=== PATIENT | male | born 1955 ===

== ENCOUNTER 2020-08-30 14:01 | Inpatient (IN) | payer OTHER, SELFPAY ==
[2020-08-30] MEDS ORDERED: Lorazepam 2 MG/ML VIAL ONE ×2 (14:16→16:44)
[2020-08-30] MEDS ORDERED: Ondansetron PF 4 MG/2 ML Vial ONE (14:23)
[2020-08-30] MEDS ORDERED: Multivitamins, Adult 10 ML, Thiamine HCl 100 MG, Folic Acid 1 MG in Dextrose 5 %-0.45 %... IV SCH (14:30)
[2020-08-30 15:10] LABS: Acetaminophen Less than 6.0 mcg/mL (10.0-30.0); Alcohol Less than 10 mg/dL (Less than 10); Salicylate Less than 8.0 mg/dL (15.0-30.0)
[2020-08-30 15:11] LABS: ALT (SGPT) 69 U/L (8-55); Albumin 4.1 g/dL (3.4-4.8); Alkaline Phosphatase 129 U/L (40-110); Anion Gap 26 mmol/L (10-20); BUN (Urea Nitrogen) 4 mg/dL (8.4-25.7); Bilirubin, Total 1.4 mg/dL (0.2-1.2); Calc. Creatinine Clearance 0 mL/min (70-130); Calcium 7.9 mg/dL (7.8-10.44); Carbon Dioxide 21 mmol/L (23-31); Chloride 95 mmol/L (98-107); Globulin 2.9 g/dL (2.4-3.5); Glucose 250 mg/dL (80-115); Lipase 16 U/L (8-78); Potassium 3.5 mmol/L (3.5-5.1); Sodium 138 mmol/L (136-145)
[2020-08-30 15:17] LABS: AST (SGOT) 155 U/L (5-34); Magnesium 1.1 mg/dL (1.6-2.6)
[2020-08-30 15:42] LABS: #Monocytes 0.3 10x3/uL (0.0-1.1); #Neutrophils 3.5 10x3/uL (1.5-8.4); %Basophils 0.5 % (0.0-2.0); %Lymphocytes 4.5 % (18.0-47.0); %Monocytes 7.9 % (0.0-10.0); %Neutrophils 84.5 % (40.0-75.0); Hemoglobin 10.6 g/dL (13.5-17.5); Mean Corpuscular HGB CONC 34.3 g/dL (32.0-36.0); Mean Corpuscular Hemoglobin 33.8 pg (27.0-33.0); Mean Corpuscular Volume 98.4 fl (81.2-95.1); Mean Platelet Volume 11.1 fl (7.4-10.4); Platelet Count 69 10x3/uL (150-450); RBC Distribution Width 15.8 % (11.5-14.5); Red Blood Cell (RBC) Count 3.14 10x6/uL (4.32-5.72); White Blood Cell (WBC) Count 4.2 10x3/uL (3.5-10.5)
[2020-08-30] MEDS ORDERED: Magnesium 2 GM/50 ML BAG (IN WATER) ONE (15:49)
[2020-08-30 16:09] LABS: Platelet Morphology Comment Appears Decreased; RBC Morphology Normal
[2020-08-30 16:18] LABS: Bilirubin Neg (Negative); Blood, Urine Negative (Negative); Clarity Clear (Clear); Glucose, Urine (Dipstick) 250 mg/dL (Negative); Ketone, Urine 5 mg/dL (Negative); Leukocyte 25 (Negative); Nitrite Negative (Negative); Protein, Urine (Dipstick) 15 mg/dl (Neg-Trace); Urobilinogen Normal mg/dL (Less than 2)
[2020-08-30 16:25] LABS: Amphetamine Not Detected (NotDetected); Barbiturates Screen Not Detected (NotDetected); Benzodiazepine Screen Not Detected (NotDetected); Cocaine Metabolite Screen Not Detected (NotDetected); Methadone Not Detected (NotDetected); Methamphetamine Not Detected (NotDetected); Opiate Screen Not Detected (NotDetected); Oxycodone Screen Not Detected (NotDetected); Phencyclidine (PCP) Not Detected (NotDetected); THC/Cannabinoid Screen Not Detected (NotDetected); Tricyclic Screen Not Detected (NotDetected)
[2020-08-30 16:33] LABS: Bacteria/HPF Rare-Few HPF (None Seen); RBC/HPF 0-3 HPF (0-3); Squamous Epithelial 0-3 HPF (0-3); WBC/HPF 0-3 HPF (0-3)
[2020-08-30 17:06] LABS: SARS-CoV-2 NAA Rapid Test Not Detected (NotDetected)
[2020-08-30] MEDS ORDERED: Ondansetron PF 4 MG/2 ML Vial IVP PRN (17:44)
[2020-08-30] MEDS ORDERED: Acetaminophen 325 MG TAB PO PRN (17:44)
[2020-08-30] MEDS ORDERED: HYDROcodone/Acetaminophen 5/325 mg Tablet PO PRN (17:44)
[2020-08-30 18:28] VITALS: BMI 22.1
[2020-08-30] MEDS ORDERED: Dextrose 5% in Water 1,000 ML IV PRN (18:39)
[2020-08-30] MEDS ORDERED: Dextrose 50% Abboject 50 ML SYRINGE SLOW IVP PRN (18:39)
[2020-08-30] MEDS ORDERED: Morphine 2 MG/ML VIAL SLOW IVP PRN (19:52)
[2020-08-30 20:25] LABS: Lactic Acid 1.9 mmol/L (0.5-2.2)
[2020-08-30] MEDS: Lorazepam 1 MG TAB PO SCH (20:54)
[2020-08-30] MEDS: Magnesium Oxide 400 MG TAB PO SCH (20:54)
[2020-08-30] MEDS: cloNIDine 0.1 MG TAB PO SCH (20:54)
[2020-08-31] MEDS: Lorazepam 2 MG/ML VIAL SLOW IVP PRN ×5 (00:23→17:21)
[2020-08-31 04:14] LABS: Lactic Acid 1.3 mmol/L (0.5-2.2)
[2020-08-31 04:20] LABS: ALT (SGPT) 57 U/L (8-55); AST (SGOT) 108 U/L (5-34); Albumin 3.9 g/dL (3.4-4.8); Alkaline Phosphatase 107 U/L (40-110); Anion Gap 13 mmol/L (10-20); BUN (Urea Nitrogen) 4 mg/dL (8.4-25.7); Bilirubin, Total 1.4 mg/dL (0.2-1.2); Calc. Creatinine Clearance 125 mL/min (70-130); Calcium 7.7 mg/dL (7.8-10.44); Carbon Dioxide 34 mmol/L (23-31); Chloride 93 mmol/L (98-107); Globulin 2.5 g/dL (2.4-3.5); Glucose 110 mg/dL (80-115); Magnesium 1.2 mg/dL (1.6-2.6); Protein, Total 6.4 g/dL (5.8-8.1); Sodium 137 mmol/L (136-145)
[2020-08-31 04:21] LABS: Potassium 2.7 mmol/L (3.5-5.1)
[2020-08-31] MEDS ORDERED: Potassium Chloride 20 MEQ TAB PO SCH (04:45)
[2020-08-31 05:07] LABS: #Monocytes 0.5 10x3/uL (0.0-1.1); #Neutrophils 2.8 10x3/uL (1.5-8.4); %Basophils 0.2 % (0.0-2.0); %Eosinophils 0.2 % (0.0-6.0); %Lymphocytes 23.3 % (18.0-47.0); %Monocytes 11.7 % (0.0-10.0); %Neutrophils 63.7 % (40.0-75.0); Hemoglobin 10.6 g/dL (13.5-17.5); Mean Corpuscular HGB CONC 34.3 g/dL (32.0-36.0); Mean Corpuscular Hemoglobin 34.1 pg (27.0-33.0); Mean Corpuscular Volume 99.4 fl (81.2-95.1); Platelet Count 70 10x3/uL (150-450); RBC Distribution Width 15.8 % (11.5-14.5); Red Blood Cell (RBC) Count 3.11 10x6/uL (4.32-5.72); White Blood Cell (WBC) Count 4.5 10x3/uL (3.5-10.5)
[2020-08-31] MEDS: Magnesium Oxide 400 MG TAB PO SCH (08:19)
[2020-08-31] MEDS: cloNIDine 0.1 MG TAB PO SCH ×3 (08:19→20:17)
[2020-08-31] MEDS: Lorazepam 1 MG TAB PO SCH (08:20)
[2020-08-31] MEDS ORDERED: Thiamine 100 MG TAB PO SCH (09:00)
[2020-08-31] MEDS ORDERED: Magnesium Sulfate 4 GM in Sodium Chloride 0.9% 250 ML 250 ML IVPB SCH (09:00)
[2020-08-31] MEDS ORDERED: Multivitamin W/ Minerals 1 TAB PO SCH (09:00)
[2020-08-31] MEDS ORDERED: Folic Acid 1 MG TAB PO SCH (09:00)
[2020-08-31] MEDS ORDERED: Potassium Chloride 40 MEQ in Premix Bag 1 BAG IVPB SCH (09:30)
[2020-08-31] MEDS: chlordiazePOXIDE HCl 5 MG CAP PO SCH ×3 (10:15→20:17)
[2020-08-31] MEDS: Magnesium 2 GM/50 ML 2 GM in Premix Bag 1 BAG IVPB SCH ×2 (10:15→10:17)
[2020-08-31 11:33] LABS: Hemoglobin A1c 4.6 % (4.0-6.0)
[2020-08-31] MEDS ORDERED: Multivitamins, Adult 10 ML, Folic Acid 1 MG, Thiamine HCl 100 MG in Dextrose 5 %-0.45 %... IV SCH (12:00)
[2020-08-31] MEDS: HumaLOG 300 UNITS/3 ML VIAL SC PRN (21:13)
[2020-09-01] MEDS: Lorazepam 2 MG/ML VIAL SLOW IVP PRN ×7 (00:50→23:14)
[2020-09-01 05:14] LABS: ALT (SGPT) 51 U/L (8-55); AST (SGOT) 88 U/L (5-34); Albumin 3.8 g/dL (3.4-4.8); Alkaline Phosphatase 97 U/L (40-110); Anion Gap 13 mmol/L (10-20); BUN (Urea Nitrogen) 5 mg/dL (8.4-25.7); Bilirubin, Total 1.6 mg/dL (0.2-1.2); Calc. Creatinine Clearance 125 mL/min (70-130); Calcium 8.2 mg/dL (7.8-10.44); Carbon Dioxide 29 mmol/L (23-31); Chloride 94 mmol/L (98-107); Globulin 2.6 g/dL (2.4-3.5); Glucose 104 mg/dL (80-115); Protein, Total 6.4 g/dL (5.8-8.1); Sodium 133 mmol/L (136-145)
[2020-09-01 05:26] LABS: Potassium 2.8 mmol/L (3.5-5.1)
[2020-09-01 05:38] LABS: #Monocytes 0.5 10x3/uL (0.0-1.1); #Neutrophils 3.7 10x3/uL (1.5-8.4); %Basophils 0.2 % (0.0-2.0); %Eosinophils 0.2 % (0.0-6.0); %Lymphocytes 15.7 % (18.0-47.0); %Neutrophils 72.7 % (40.0-75.0); Hemoglobin 10.7 g/dL (13.5-17.5); Mean Corpuscular HGB CONC 34.5 g/dL (32.0-36.0); Mean Corpuscular Hemoglobin 34.3 pg (27.0-33.0); Mean Corpuscular Volume 99.4 fl (81.2-95.1); Mean Platelet Volume 11.9 fl (7.4-10.4); Platelet Count 78 10x3/uL (150-450); RBC Distribution Width 14.8 % (11.5-14.5); Red Blood Cell (RBC) Count 3.12 10x6/uL (4.32-5.72); White Blood Cell (WBC) Count 5.1 10x3/uL (3.5-10.5)
[2020-09-01] MEDS ORDERED: Potassium Chloride 20 MEQ TAB PO SCH ×2 (06:30→08:30)
[2020-09-01] MEDS: cloNIDine 0.1 MG TAB PO SCH ×3 (08:13→21:45)
[2020-09-01] MEDS: chlordiazePOXIDE HCl 5 MG CAP PO SCH ×3 (08:13→21:45)
[2020-09-01] MEDS ORDERED: Multivitamins, Adult 10 ML, Folic Acid 1 MG, Thiamine HCl 100 MG in Dextrose 5 %-0.45 %... IV SCH (12:00)
[2020-09-01 14:46] LABS: Anion Gap 16 mmol/L (10-20); BUN (Urea Nitrogen) 4 mg/dL (8.4-25.7); Calc. Creatinine Clearance 122 mL/min (70-130); Calcium 8.8 mg/dL (7.8-10.44); Carbon Dioxide 28 mmol/L (23-31); Chloride 97 mmol/L (98-107); Glucose 149 mg/dL (80-115); Magnesium 1.6 mg/dL (1.6-2.6); Potassium 3.9 mmol/L (3.5-5.1); Sodium 137 mmol/L (136-145)
[2020-09-01] MEDS ORDERED: Electrolyte Replacement Protocol FS SCH (16:15)
[2020-09-01] MEDS ORDERED: Magnesium 2 GM/50 ML 2 GM in Premix Bag 1 BAG IVPB SCH (16:15)
[2020-09-02] MEDS: Lorazepam 2 MG/ML VIAL SLOW IVP PRN ×5 (02:28→20:49)
[2020-09-02] MEDS: Labetalol HCl 100 MG/20 ML VIAL SLOW IVP PRN (03:11)
[2020-09-02 04:14] LABS: #Eosinphils 0.1 10x3/uL (0.0-0.5); #Monocytes 0.6 10x3/uL (0.0-1.1); #Neutrophils 3.8 10x3/uL (1.5-8.4); %Basophils 0.4 % (0.0-2.0); %Eosinophils 1.1 % (0.0-6.0); %Lymphocytes 19.4 % (18.0-47.0); %Monocytes 11.1 % (0.0-10.0); %Neutrophils 66.8 % (40.0-75.0); Hemoglobin 11.1 g/dL (13.5-17.5); Mean Corpuscular HGB CONC 34.6 g/dL (32.0-36.0); Mean Corpuscular Hemoglobin 34.9 pg (27.0-33.0); Mean Corpuscular Volume 100.9 fl (81.2-95.1); Mean Platelet Volume 11.7 fl (7.4-10.4); Platelet Count 93 10x3/uL (150-450); RBC Distribution Width 14.8 % (11.5-14.5); Red Blood Cell (RBC) Count 3.18 10x6/uL (4.32-5.72); White Blood Cell (WBC) Count 5.6 10x3/uL (3.5-10.5)
[2020-09-02 04:23] LABS: ALT (SGPT) 51 U/L (8-55); AST (SGOT) 80 U/L (5-34); Albumin 3.8 g/dL (3.4-4.8); Alkaline Phosphatase 97 U/L (40-110); Anion Gap 14 mmol/L (10-20); BUN (Urea Nitrogen) 6 mg/dL (8.4-25.7); Bilirubin, Total 1.6 mg/dL (0.2-1.2); Calc. Creatinine Clearance 125 mL/min (70-130); Calcium 8.7 mg/dL (7.8-10.44); Carbon Dioxide 24 mmol/L (23-31); Chloride 100 mmol/L (98-107); Globulin 2.7 g/dL (2.4-3.5); Glucose 104 mg/dL (80-115); Magnesium 1.6 mg/dL (1.6-2.6); Potassium 3.5 mmol/L (3.5-5.1); Protein, Total 6.5 g/dL (5.8-8.1); Sodium 134 mmol/L (136-145)
[2020-09-02] MEDS: cloNIDine 0.1 MG TAB PO SCH ×3 (08:11→20:43)
[2020-09-02] MEDS: chlordiazePOXIDE HCl 5 MG CAP PO SCH ×3 (08:11→20:43)
[2020-09-02] MEDS ORDERED: Potassium Chloride 20 MEQ TAB PO SCH (10:15)
[2020-09-02] MEDS ORDERED: Magnesium 2 GM/50 ML 2 GM in Premix Bag 1 BAG IVPB SCH (10:15)
[2020-09-02] MEDS: Propranolol 10 MG TAB PO SCH (20:43)
[2020-09-02] MEDS: HumaLOG 300 UNITS/3 ML VIAL SC PRN (20:46)
[2020-09-03] MEDS: Labetalol HCl 100 MG/20 ML VIAL SLOW IVP PRN ×2 (00:35→05:57)
[2020-09-03 05:35] LABS: ALT (SGPT) 58 U/L (8-55); Albumin 3.9 g/dL (3.4-4.8); Alkaline Phosphatase 106 U/L (40-110); Anion Gap 17 mmol/L (10-20); BUN (Urea Nitrogen) 7 mg/dL (8.4-25.7); Bilirubin, Total 1.7 mg/dL (0.2-1.2); Calc. Creatinine Clearance 129 mL/min (70-130); Calcium 8.7 mg/dL (7.8-10.44); Carbon Dioxide 25 mmol/L (23-31); Chloride 99 mmol/L (98-107); Globulin 3.3 g/dL (2.4-3.5); Glucose 109 mg/dL (80-115); Potassium 4.1 mmol/L (3.5-5.1); Protein, Total 7.2 g/dL (5.8-8.1); Sodium 137 mmol/L (136-145)
[2020-09-03 05:38] LABS: AST (SGOT) 86 U/L (5-34); Magnesium 1.4 mg/dL (1.6-2.6)
[2020-09-03] MEDS ORDERED: Magnesium Sulfate 4 GM in Sodium Chloride 0.9% 250 ML 250 ML IVPB SCH (07:15)
[2020-09-03] MEDS: Magnesium 2 GM/50 ML 2 GM in Premix Bag 1 BAG IVPB SCH ×2 (09:26→12:59)
[2020-09-03] MEDS: cloNIDine 0.1 MG TAB PO SCH ×3 (09:27→21:15)
[2020-09-03] MEDS: chlordiazePOXIDE HCl 5 MG CAP PO SCH ×3 (09:27→21:15)
[2020-09-03] MEDS: Propranolol 10 MG TAB PO SCH ×2 (09:28→21:15)
[2020-09-03] MEDS: Folic Acid 1 MG TAB PO SCH (09:28)
[2020-09-03] MEDS: Thiamine 100 MG TAB PO SCH (09:29)
[2020-09-03] MEDS ORDERED: Magnesium 2 GM/50 ML 2 GM in Premix Bag 1 BAG IVPB SCH (13:00)
[2020-09-03] MEDS: Nicotine 21 MG PATCH TOP SCH (23:30)
[2020-09-03] MEDS: Lorazepam 2 MG/ML VIAL SLOW IVP PRN (23:30)
[2020-09-04] MEDS: Labetalol HCl 100 MG/20 ML VIAL SLOW IVP PRN (04:11)
[2020-09-04] MEDS: Lorazepam 2 MG/ML VIAL SLOW IVP PRN ×2 (04:12→05:51)
[2020-09-04 06:20] LABS: ALT (SGPT) 49 U/L (8-55); AST (SGOT) 63 U/L (5-34); Albumin 3.6 g/dL (3.4-4.8); Alkaline Phosphatase 113 U/L (40-110); Anion Gap 13 mmol/L (10-20); BUN (Urea Nitrogen) 12 mg/dL (8.4-25.7); Calc. Creatinine Clearance 122 mL/min (70-130); Calcium 8.5 mg/dL (7.8-10.44); Carbon Dioxide 24 mmol/L (23-31); Chloride 103 mmol/L (98-107); Globulin 2.8 g/dL (2.4-3.5); Glucose 137 mg/dL (80-115); Magnesium 1.6 mg/dL (1.6-2.6); Potassium 3.6 mmol/L (3.5-5.1); Protein, Total 6.4 g/dL (5.8-8.1); Sodium 136 mmol/L (136-145)
[2020-09-04] MEDS ORDERED: Labetalol HCl 100 MG/20 ML VIAL SLOW IVP SCH (07:00)
[2020-09-04] MEDS ORDERED: Lorazepam 2 MG/ML VIAL SLOW IVP PRN (08:21)
[2020-09-04] MEDS: Thiamine 100 MG TAB PO SCH (08:23)
[2020-09-04] MEDS: Folic Acid 1 MG TAB PO SCH (08:23)
[2020-09-04] MEDS: Propranolol 10 MG TAB PO SCH (08:24)
[2020-09-04] MEDS: cloNIDine 0.1 MG TAB PO SCH (08:24)
[2020-09-04] MEDS: chlordiazePOXIDE HCl 5 MG CAP PO SCH ×4 (08:24→20:52)
[2020-09-04] MEDS ORDERED: Potassium Chloride 20 MEQ TAB PO SCH (09:00)
[2020-09-04] MEDS ORDERED: Olmesartan 5 MG TAB PO SCH (09:00)
[2020-09-04] MEDS ORDERED: Magnesium 2 GM/50 ML 2 GM in Premix Bag 1 BAG IVPB SCH ×2 (09:00→14:00)
[2020-09-04] MEDS ORDERED: Metoprolol Tartrate 25 MG TAB PO SCH (09:00)
[2020-09-04] MEDS ORDERED: cloNIDine 0.1mg/24 Hour PATCH TD SCH ×2 (09:00)
[2020-09-04] MEDS ORDERED: Electrolyte Replacement Protocol FS PRN (14:00)
[2020-09-04] MEDS: Nicotine 21 MG PATCH TOP SCH (20:51)
[2020-09-05] MEDS: Labetalol HCl 100 MG/20 ML VIAL SLOW IVP PRN (06:52)
[2020-09-05] MEDS ORDERED: Magnesium 2 GM/50 ML 2 GM in Premix Bag 1 BAG IVPB SCH (09:00)
[2020-09-05] MEDS ORDERED: Losartan 25 MG TAB PO SCH (09:00)
[2020-09-05] MEDS ORDERED: Metoprolol Tartrate 25 MG TAB PO SCH (09:00)
[2020-09-05] MEDS: Thiamine 100 MG TAB PO SCH (09:34)
[2020-09-05] MEDS: chlordiazePOXIDE HCl 5 MG CAP PO SCH ×2 (09:34→16:08)
[2020-09-05] MEDS: Folic Acid 1 MG TAB PO SCH (09:34)
[2020-09-05] MEDS ORDERED: diphenhydrAMINE 25 MG CAP PO PRN (11:38)
[2020-09-05 15:38] VITALS: BP 168/95; TEMP 97.6
== END 2020-09-05 17:05 | disposition home or self-care (01) | DRG 896 ==
LOC: CSHERS 14:01 → CSHIMCU 18:19 → CSHTELE 09-02 13:39
PROVIDERS: ADMIT Internal Medicine; ATTEND Family Medicine
DX: F10.231 Alcohol dependence with withdrawal delirium (principal); G93.41 Metabolic encephalopathy; G92 Toxic encephalopathy; E87.2 Acidosis; Z20.822 Contact with and (suspected) exposure to COVID-19; R56.9 Unspecified convulsions; I10 Essential (primary) hypertension; E11.9 Type 2 diabetes mellitus without complications; F17.210 Nicotine dependence, cigarettes, uncomplicated; L40.9 Psoriasis, unspecified; K70.9 Alcoholic liver disease, unspecified; Z96.651 Presence of right artificial knee joint; D69.6 Thrombocytopenia, unspecified; E83.51 Hypocalcemia; E87.6 Hypokalemia; Y90.0 Blood alcohol level of less than 20 mg/100 ml; E83.42 Hypomagnesemia; Z78.1 Physical restraint status
CPT/HCPCS: 36415; 36416; 70450; 71045; 80053; 80306; 80307; 81003; 81015; 82140; 83036; 83605; 83690; 83735; 84484; 85025; 93005; 94760; 96365; 96366; 96368; 96375; 96376; J1815; J2060; J2405; J3411; J3475; J3480; J7042; Q0163; U0002